=== PATIENT | female | born 1965 | race Caucasian/White ===

== ENCOUNTER → 2017-01-09 | Outpatient (CLI) | payer OTHER | LOC: SLEEP 21:30 | DX: G47.30 Sleep apnea, unspecified (principal) | CPT/HCPCS: 95810 ==

== ENCOUNTER → 2017-01-09 | Outpatient (CLI) | payer OTHER | LOC: HEART 5 10:04 | DX: J44.9 Chronic obstructive pulmonary disease, unspecified (principal); R94.2 Abnormal results of pulmonary function studies | CPT/HCPCS: 94060; 94729 ==

== ENCOUNTER → 2020-12-21 | Outpatient (CLI) | payer OTHER ==
[~2020-12-21] MED LIST: DOXY 100100 MG IV; PHENERGAN 25 MG25 M1 PO
[2020-12-21 06:57] LABS: BUN/CREATININE RATIO 16 (0-10)
== END ==
LOC: LAB 06:22
PROVIDERS: Emergency Medicine
DX: I10 Essential (primary) hypertension (principal); R53.83 Other fatigue
CPT/HCPCS: 36415; 80053

== ENCOUNTER → 2021-01-25 | Outpatient (CLI) | payer OTHER ==
[2021-01-25 12:22] LABS: HEMOGLOBIN 14.9 gm/dl (12.3-15.3); RED BLOOD COUNT 4.83 M/UL (4.00-5.10); WHITE BLOOD COUNT 10.3 K/UL (4.5-11.0)
[2021-01-25 12:59] LABS: BUN/CREATININE RATIO 15 (0-10)
[2021-01-26 10:12] LABS: VITAMIN D, 25-HYDROXY 58.9 ng/mL (30.0-100.0)
[2021-01-26 12:11] LABS: RHEUMATOID ARTHRITIS FACTOR <10.0 IU/mL (0.0-13.9)
[2021-01-27 00:07] LABS: CCP ANTIBODIES IGG/IGA 5 units (0-19)
== END ==
LOC: LAB 11:29
PROVIDERS: Nurse Practitioner Family
DX: M06.9 Rheumatoid arthritis, unspecified (principal); D89.9 Disorder involving the immune mechanism, unspecified; M25.50 Pain in unspecified joint; R76.8 Other specified abnormal immunological findings in serum
CPT/HCPCS: 36415; 73565; 80053; 83520; 85025; 85652; 86140; 86200; 86431

== ENCOUNTER → 2021-03-05 | Outpatient (CLI) | payer OTHER ==
[2021-03-05 10:01] LABS: HEMOGLOBIN 14.4 gm/dl (12.3-15.3); RED BLOOD COUNT 4.8 M/UL (4.00-5.10); WHITE BLOOD COUNT 12.4 K/UL (4.5-11.0)
[2021-03-05 10:59] LABS: BUN/CREATININE RATIO 18 (0-10)
[2021-03-06 08:13] LABS: HBSAG SCREEN Negative (Negative); HEP B CORE AB, TOT Negative (Negative)
[2021-03-06 10:13] LABS: HCV AB <0.1 (0.0-0.9)
[2021-03-10 21:09] LABS: QUANTIFERON MITOGEN VALUE >10.00 IU/mL (.); QUANTIFERON TB1 AG VALUE 0.04 IU/mL (.); QUANTIFERON-TB GOLD PLUS Negative (Negative)
== END ==
LOC: LAB 08:55
PROVIDERS: Internal Medicine
DX: Z51.81 Encounter for therapeutic drug level monitoring (principal); Z79.899 Other long term (current) drug therapy
CPT/HCPCS: 36415; 80053; 85025; 86704; 86803; 87340

== ENCOUNTER 2021-04-18 01:36 | Emergency (ER) | payer OTHER ==
[~2021-04-18 01:36] MED LIST changes: -PHENERGAN 25 MG25 M1 PO
[2021-04-18] MEDS ORDERED: PHENERGAN 25 MG25 M1 PO (03:24)
== END 2021-04-18 04:15 | disposition home or self-care (01) ==
LOC: ER1 01:36
DX: R11.10 Vomiting, unspecified (principal); R19.7 Diarrhea, unspecified
CPT/HCPCS: 96374; 99284; J2550

== ENCOUNTER → 2021-04-21 | Outpatient (CLI) | payer OTHER ==
[~2021-04-21] VITALS: Ht 157.5 cm; Wt 87.1 kg
[~2021-04-21] MED LIST changes: +PHENERGAN 25 MG25 M1 PO
== END ==
LOC: OPSV 08:00
DX: M06.9 Rheumatoid arthritis, unspecified (principal)
CPT/HCPCS: 96365; 96375; J1602; J2920

== ENCOUNTER → 2021-06-11 | Outpatient (CLI) | payer OTHER | LOC: OPSV 13:00 | DX: M06.09 Rheumatoid arthritis without rheumatoid factor, multiple sites (principal) | CPT/HCPCS: 96365; 96375; J1602; J2920 ==

== ENCOUNTER → 2021-06-23 | Outpatient (CLI) | payer OTHER ==
[2021-06-23 12:09] LABS: HEMOGLOBIN 14.1 gm/dl (12.3-15.3); RED BLOOD COUNT 4.56 M/UL (4.00-5.10); WHITE BLOOD COUNT 15.1 K/UL (4.5-11.0)
[2021-06-23 12:29] LABS: BUN/CREATININE RATIO 21 (0-10)
== END ==
LOC: LAB 11:19
PROVIDERS: Internal Medicine
DX: R05 Cough (principal); J98.4 Other disorders of lung; Z79.899 Other long term (current) drug therapy; M06.09 Rheumatoid arthritis without rheumatoid factor, multiple sites; R91.8 Other nonspecific abnormal finding of lung field
CPT/HCPCS: 36415; 71046; 80053; 85025; 85652; 86140

== ENCOUNTER → 2021-06-28 | Outpatient (CLI) | payer OTHER ==
[2021-06-28 07:48] LABS: BUN/CREATININE RATIO 14 (0-10)
[2021-06-30 12:14] LABS: CHOLESTEROL, TOTAL 148 mg/dL (100-199); HDL SIZE 8.9 nm (>=9.2); HDL-C 47 mg/dL (>39); HDL-P (TOTAL) 35.3 umol/L (>=30.5); LARGE HDL-P 4.7 umol/L (>=4.8); LARGE VLDL-P 4.5 nmol/L (<=2.7); LDL SIZE 20.8 nm (>20.5); LDL SIZE 20.8 nm (>=20.8); LDL-C 81 mg/dL (0-99); LDL-P 1021 nmol/L (<1000); LP-IR SCORE 66 (<=45); SMALL LDL-P 547 nmol/L (<=527); TRIGLYCERIDES 107 mg/dL (0-149); VLDL SIZE 53.9 nm (<=46.6)
== END ==
LOC: LAB 06:52
PROVIDERS: Emergency Medicine
DX: I10 Essential (primary) hypertension (principal); R53.83 Other fatigue; R78.2 Finding of cocaine in blood; E11.9 Type 2 diabetes mellitus without complications
CPT/HCPCS: 36415; 80053; 80061; 83036; 83704; 84443

== ENCOUNTER → 2021-08-20 | Outpatient (CLI) | payer OTHER | LOC: KOH-I 12:13 | DX: M79.672 Pain in left foot (principal) | CPT/HCPCS: 73630 ==

== ENCOUNTER → 2021-09-06 | Outpatient (CLI) | payer OTHER ==
[~2021-09-06] VITALS: Ht 157.5 cm; Wt 87.1 kg
== END ==
LOC: OPSV 11:00
DX: M06.89 Other specified rheumatoid arthritis, multiple sites (principal)
CPT/HCPCS: 96365; 96375; J1602; J2920

== ENCOUNTER → 2021-12-30 | Outpatient (CLI) | payer OTHER ==
[2021-12-30 09:09] LABS: HEMOGLOBIN 14.1 gm/dl (12.3-15.3); RED BLOOD COUNT 4.88 M/UL (4.00-5.10); WHITE BLOOD COUNT 12.4 K/UL (4.5-11.0)
[2021-12-31 05:10] LABS: BILIRUBIN, TOTAL 0.2 mg/dL (0.0-1.2); CALCIUM, SERUM 9.5 mg/dL (8.7-10.2); CREATININE, SERUM 0.79 mg/dL (0.57-1.00); GLOBULIN, TOTAL 3.7 g/dL (1.5-4.5); HEMOGLOBIN A1C 6.6 % (4.8-5.6); POTASSIUM, SERUM 4.7 mmol/L (3.5-5.2); PROTEIN, TOTAL, SERUM 7.4 g/dL (6.0-8.5); TSH 1.85 uIU/mL (0.450-4.500)
[2021-12-31 11:15] LABS: CREATININE, URINE 113.6 mg/dL (Not Estab.)
== END ==
LOC: LAB 06:27
PROVIDERS: Emergency Medicine
DX: E78.2 Mixed hyperlipidemia (principal); E11.9 Type 2 diabetes mellitus without complications; I10 Essential (primary) hypertension; D72.828 Other elevated white blood cell count
CPT/HCPCS: 36415; 80053; 82043; 82570; 83036; 84443; 84550; 85025

== ENCOUNTER 2022-03-24 14:11 | Inpatient (IN) | payer OTHER ==
[~2022-03-24] VITALS: Ht 157.5 cm; Wt 89.0 kg
[~2022-03-24 14:11] MED LIST changes: -ALBUTEROL0.63 MG/3 INH; -CETIRIZINE HCL10 MG PO; -CRESTOR10 MG PO; -FOLIC ACID1 MG PO; -LEVOFLOXACIN; -METFORMIN HCL500 MG PO; -NORVASC5 MG PO; -PREDNISONE; -PROZAC 20 MG CA20 MG PO; -ROPINIROLE HC0.25 MG PO
[2022-03-24 14:56] LABS: HEMOGLOBIN 14.2 gm/dl (12.3-15.3); RED BLOOD COUNT 5.02 M/UL (4.00-5.10); WHITE BLOOD COUNT 15.3 K/UL (4.5-11.0)
[2022-03-24 15:15] LABS: BUN/CREATININE RATIO 16 (0-10)
[2022-03-25 02:04] LABS: HEMOGLOBIN 13.3 gm/dl (12.3-15.3); RED BLOOD COUNT 4.82 M/UL (4.00-5.10); WHITE BLOOD COUNT 12.1 K/UL (4.5-11.0)
[2022-03-25 02:32] LABS: BUN/CREATININE RATIO 15 (0-10)
[2022-03-25 07:03] LABS: CORONAVIRUS HKU1 Not Detected (Not Detectd); CORONAVIRUS NL63 Not Detected (Not Detectd); CORONAVIRUS OC43 Not Detected (Not Detectd); CORONOAVIRUS 229E Not Detected (Not Detectd)
[2022-03-25 07:04] LABS: BORDETELLA PARAPERTUSSIS Not Detected (Not Detectd); BORDETELLA PERTUSSIS Not Detected (Not Detectd); CHLAMYDIA PNEUMONIAE Not Detected (Not Detectd); HUMAN METAPNEUMOVIRUS Not Detected (Not Detectd); HUMAN RHINOVIRUS/ENTEROVIRUS Not Detected (Not Detectd); INFLUENZA A Not Detected (Not Detectd); INFLUENZA B Not Detected (Not Detectd); MYCOPLASMA PNEUMONIAE Not Detected (Not Detectd); PARAINFLUENZA VIRUS 1 Not Detected (Not Detectd); PARAINFLUENZA VIRUS 2 Not Detected (Not Detectd); PARAINFLUENZA VIRUS 3 Not Detected (Not Detectd); PARAINFLUENZA VIRUS 4 Not Detected (Not Detectd); RESPIRATORY SYNCYTIAL VIRUS Not Detected (Not Detectd)
[2022-03-25 08:31] LABS: SARS-CoV-2 NOT DETECTED (Not Detectd)
--- NOTE | 2022-03-25 09:18 | NUR ---
PATIENT'S OXYGEN SATURATION DROPPED TO 86% ON ROOM AIR. OXYGEN REAPPLIED AND RAISED ABOVE 90%. NOS/SX OF PAIN OR DISTRESS.
[2022-03-25] MEDS ORDERED: CETIRIZINE HCL10 MG PO (11:15)
[2022-03-25] MEDS ORDERED: CRESTOR10 MG PO (11:16)
[2022-03-25] MEDS ORDERED: NORVASC5 MG PO (11:16)
[2022-03-25] MEDS ORDERED: ALBUTEROL0.63 MG/3 INH (11:16)
[2022-03-25] MEDS ORDERED: ROPINIROLE HC0.25 MG PO (11:17)
[2022-03-25] MEDS ORDERED: METFORMIN HCL500 MG PO (11:17)
[2022-03-25] MEDS ORDERED: PROZAC 20 MG CA20 MG PO (11:17)
[2022-03-25] MEDS ORDERED: FOLIC ACID1 MG PO (11:17)
[2022-03-26 06:38] LABS: HEMOGLOBIN 13.6 gm/dl (12.3-15.3); RED BLOOD COUNT 4.94 M/UL (4.00-5.10); WHITE BLOOD COUNT 10.7 K/UL (4.5-11.0)
[2022-03-26 07:32] LABS: BUN/CREATININE RATIO 27 (0-10)
[2022-03-26] MEDS ORDERED: PREDNISONE (10:30)
[2022-03-26] MEDS ORDERED: LEVOFLOXACIN (10:30)
== END 2022-03-26 16:00 | disposition home or self-care (01) | DRG 196 ==
LOC: ER1 14:11 → CDU 18:54 → M/S 18:54
PROVIDERS: Emergency Medicine; Internal Medicine; ADMIT Internal Medicine
DX: J84.9 Interstitial pulmonary disease, unspecified (principal); J96.01 Acute respiratory failure with hypoxia; I10 Essential (primary) hypertension; E78.5 Hyperlipidemia, unspecified; E11.9 Type 2 diabetes mellitus without complications; M06.9 Rheumatoid arthritis, unspecified; Z86.16 Personal history of COVID-19; F17.200 Nicotine dependence, unspecified, uncomplicated; G47.33 Obstructive sleep apnea (adult) (pediatric); Z98.890 Other specified postprocedural states; Z82.5 Family history of asthma and other chronic lower respiratory diseases
CPT/HCPCS: ECHO; 36415; 36600; 80048; 80053; 81001; 82550; 82553; 82803; 82962; 83036; 83735; 83880; 84132; 84484; 85025; 85027; 85652; 86140; 87040; 87633; 93005; 93306; 93970; 94640; 94664; 94760; 96374; 99285; J0696; J1335; J1650; J2930; Q0177; Q9967; U0002

== ENCOUNTER → 2022-03-24 | Outpatient (CLI) | payer OTHER ==
[~2022-03-24] MED LIST changes: +ALBUTEROL0.63 MG/3 INH; +CETIRIZINE HCL10 MG PO; +CRESTOR10 MG PO; +FOLIC ACID1 MG PO; +LEVOFLOXACIN; +METFORMIN HCL500 MG PO; +NORVASC5 MG PO; +PREDNISONE; +PROZAC 20 MG CA20 MG PO; +ROPINIROLE HC0.25 MG PO
[2022-03-24 09:30] LABS: HEMOGLOBIN 14.3 gm/dl (12.3-15.3); RED BLOOD COUNT 5.15 M/UL (4.00-5.10); WHITE BLOOD COUNT 10.3 K/UL (4.5-11.0)
[2022-03-24 09:44] LABS: BUN/CREATININE RATIO 17 (0-10)
== END ==
LOC: LAB 08:46
PROVIDERS: Nurse Practitioner
DX: I10 Essential (primary) hypertension (principal); E78.2 Mixed hyperlipidemia; R53.83 Other fatigue; R06.02 Shortness of breath
CPT/HCPCS: 36415; 71046; 80053; 83880; 84443; 85025; 85379

== ENCOUNTER → 2022-04-12 | Outpatient (CLI) | payer OTHER ==
[~2022-04-12] MED LIST changes: +ALBUTEROL0.63 MG/3 INH; +CETIRIZINE HCL10 MG PO; +CRESTOR10 MG PO; +FOLIC ACID1 MG PO; +LEVOFLOXACIN; +METFORMIN HCL500 MG PO; +NORVASC5 MG PO; +PREDNISONE; +PROAIR HFA8.5 GM INH; +PROZAC 20 MG CA20 MG PO; +ROPINIROLE HC0.25 MG PO; +SYMBICORT 160-1 INHA INH
== END ==
LOC: HEART 5 13:34
DX: R06.02 Shortness of breath (principal)
CPT/HCPCS: 94060; 94729

== ENCOUNTER 2022-05-17 10:07 | Emergency (ER) | payer OTHER ==
[~2022-05-17 10:07] MED LIST changes: +ENDOCET 10-3251 EACH PO; +ZOFRAN 4 MG TAB4 MG PO
[2022-05-17] MEDS ORDERED: VOLTAREN ARTHRI20 GM TP (13:49)
[2022-05-17] MEDS ORDERED: NORFLEX 100 MG100 MG PO (13:49)
== END 2022-05-17 14:27 | disposition home or self-care (01) ==
LOC: ER1 10:07
DX: M54.50 Low back pain, unspecified (principal); F17.210 Nicotine dependence, cigarettes, uncomplicated; E11.9 Type 2 diabetes mellitus without complications; I10 Essential (primary) hypertension
CPT/HCPCS: 72131; 96372; 99283; J1885

== ENCOUNTER → 2022-06-29 | Outpatient (CLI) | payer OTHER ==
[~2022-06-29] MED LIST changes: +NORFLEX 100 MG100 MG PO; +VOLTAREN ARTHRI20 GM TP
[2022-06-29 09:52] LABS: HEMOGLOBIN 14.3 gm/dl (12.3-15.3); RED BLOOD COUNT 5.15 M/UL (4.00-5.10); WHITE BLOOD COUNT 13.2 K/UL (4.5-11.0)
[2022-06-29 10:11] LABS: BUN/CREATININE RATIO 16 (0-10)
== END ==
LOC: LAB 08:01
PROVIDERS: Emergency Medicine
DX: E78.2 Mixed hyperlipidemia (principal); E11.9 Type 2 diabetes mellitus without complications; I73.89 Other specified peripheral vascular diseases
CPT/HCPCS: 36415; 80053; 84443; 84550; 85025

== ENCOUNTER → 2022-07-19 | Outpatient (CLI) | payer OTHER | LOC: EXRD 13:12 | DX: I65.23 Occlusion and stenosis of bilateral carotid arteries (principal); E04.2 Nontoxic multinodular goiter | CPT/HCPCS: 93880 ==

== ENCOUNTER → 2022-08-02 | Outpatient (CLI) | payer OTHER ==
[2022-08-02 07:18] LABS: BUN/CREATININE RATIO 18 (0-10)
[2022-08-03 15:14] LABS: CHOLESTEROL, TOTAL 160 mg/dL (100-199); HDL SIZE 8.8 nm (>=9.2); HDL-C 42 mg/dL (>39); HDL-P (TOTAL) 29.4 umol/L (>=30.5); LARGE HDL-P 3.4 umol/L (>=4.8); LARGE VLDL-P 7.3 nmol/L (<=2.7); LDL SIZE 20.9 nm (>20.5); LDL SIZE 20.9 nm (>=20.8); LDL-C 96 mg/dL (0-99); LDL-P 1021 nmol/L (<1000); LP-IR SCORE 74 (<=45); SMALL LDL-P 375 nmol/L (<=527); TRIGLYCERIDES 124 mg/dL (0-149); VLDL SIZE 55.9 nm (<=46.6)
== END ==
LOC: LAB 06:20
PROVIDERS: Emergency Medicine
DX: I10 Essential (primary) hypertension (principal); E55.9 Vitamin D deficiency, unspecified
CPT/HCPCS: 36415; 80053; 80061; 83036; 83704

== ENCOUNTER → 2022-08-11 | Outpatient (CLI) | payer OTHER | LOC: US 10:20 | DX: E04.2 Nontoxic multinodular goiter (principal) | CPT/HCPCS: 76536 ==